=== PATIENT | female | born 1935 | race Caucasian/White ===

== ENCOUNTER 2020-08-19 08:41 | Outpatient (CLI) | payer MEDICARE, MEDICAID | END 2020-08-19 08:42 | disposition home or self-care (01) | LOC: MRI 08:41 | PROVIDERS: ATTEND Family Medicine | DX: M51.36 Other intervertebral disc degeneration, lumbar region (principal); M47.816 Spondylosis without myelopathy or radiculopathy, lumbar region; M47.817 Spondylosis without myelopathy or radiculopathy, lumbosacral region; M47.815 Spondylosis without myelopathy or radiculopathy, thoracolumbar region | CPT/HCPCS: 72148 ==

== ENCOUNTER 2021-09-28 07:33 | Outpatient (CLI) | payer OTHER | END 2021-09-28 07:34 | disposition home or self-care (01) | LOC: CT 07:33 | PROVIDERS: ATTEND Family Medicine | DX: R18.8 Other ascites (principal); J90 Pleural effusion, not elsewhere classified; E27.8 Other specified disorders of adrenal gland; N28.89 Other specified disorders of kidney and ureter; N28.9 Disorder of kidney and ureter, unspecified; M79.89 Other specified soft tissue disorders; K43.9 Ventral hernia without obstruction or gangrene; I51.7 Cardiomegaly; Z90.49 Acquired absence of other specified parts of digestive tract; Z20.822 Contact with and (suspected) exposure to COVID-19 | CPT/HCPCS: 74150; 82565; U0003; U0005 ==

== ENCOUNTER 2021-09-29 08:29 | Inpatient (IN) | payer OTHER, MEDICAID ==
[2021-09-29 09:11] LABS: #Eosinphils 0.1 thou/uL (0.0-0.7); #Lymphocytes 1.1 thou/uL (1.20-3.40); #Monocytes 0.6 thou/uL (0.11-0.59); #Neutrophils 5.5 thou/uL (1.40-6.50); %Basophils 0.3 % (0.0-1.0); %Eosinophils 1.8 % (0.0-10.0); %Lymphocytes 14.5 % (21.0-51.0); %Neutrophils 75.3 % (42.0-75.0); Hemoglobin 9.9 g/dL (12.0-16.0); Mean Corpuscular HGB CONC 33.2 g/dL (32.0-36.0); Mean Corpuscular Hemoglobin 30.6 pg (27.0-31.0); Mean Corpuscular Volume 92.2 fL (78.0-98.0); Mean Platelet Volume 8.8 fL (7.4-10.4); Platelet Count 211 thou/uL (130-400); RBC Distribution Width 14.1 % (11.5-14.5); Red Blood Cell (RBC) Count 3.25 mill/uL (4.20-5.40); White Blood Cell (WBC) Count 7.3 thou/uL (4.8-10.8)
[2021-09-29] MEDS ORDERED: Pantoprazole 40 MG VIAL ONE (09:12)
[2021-09-29 09:28] LABS: PTT 76.6 sec (22.9-36.1); Prothrombin Time 81.8 sec (12.0-14.7)
[2021-09-29 09:31] LABS: ALT (SGPT) Less than 7 U/L (8-55); AST (SGOT) 14 U/L (5-34); Albumin 3.5 g/dL (3.4-4.8); Alkaline Phosphatase 82 U/L (40-110); Anion Gap 13 mmol/L (10-20); BUN (Urea Nitrogen) 45 mg/dL (9.8-20.1); Bilirubin, Total 0.7 mg/dL (0.2-1.2); Calc. Creatinine Clearance 0 mL/min (70-130); Calcium 8.9 mg/dL (7.8-10.44); Carbon Dioxide 26 mmol/L (23-31); Chloride 105 mmol/L (98-107); Estimated GFR 20; Globulin 2.9 g/dL (2.4-3.5); Glucose 121 mg/dL (83-110); Potassium 3.9 mmol/L (3.5-5.1); Protein, Total 6.4 g/dL (5.8-8.1); Sodium 140 mmol/L (136-145)
[2021-09-29 09:44] LABS: INR-International Normal Ratio 9.9
[2021-09-29] MEDS ORDERED: Phytonadione 5 MG TAB PO SCH (10:30)
[2021-09-29] MEDS ORDERED: Pantoprazole 80 MG, Admixture Fee 1 EACH in Sodium Chloride 0.9% 100 ML IVPB SCH (10:30)
[2021-09-29 14:47] VITALS: BMI 31.1
[2021-09-29] MEDS ORDERED: Metoprolol Tartrate 5 MG/5 ML VIAL IVP PRN (17:00)
[2021-09-29 18:18] LABS: Hemoglobin 9.2 g/dL (12.0-16.0); Platelet Count 171 thou/uL (130-400)
[2021-09-29] MEDS: rOPINIRole HCl 1 MG TAB PO SCH ×2 (19:05→19:44)
[2021-09-29] MEDS: Sevelamer Carbonate 800 MG TAB PO SCH (19:05)
[2021-09-29] MEDS: Atorvastatin Calcium 40 MG TAB PO SCH (19:51)
[2021-09-29] MEDS: Gabapentin 100 MG CAP PO SCH (19:51)
[2021-09-29] MEDS: Metoprolol Tartrate 50 MG TAB PO SCH (19:51)
[2021-09-29 23:49] LABS: Hemoglobin 9.1 g/dL (12.0-16.0); Platelet Count 178 thou/uL (130-400)
[2021-09-30] MEDS ORDERED: rOPINIRole HCl 1 MG TAB PO SCH (02:00)
[2021-09-30] MEDS: Sevelamer Carbonate 800 MG TAB PO SCH ×3 (08:53→18:30)
[2021-09-30] MEDS: Amiodarone 200 MG TAB PO SCH (08:54)
[2021-09-30] MEDS: Spironolactone 25 MG TAB PO SCH (08:54)
[2021-09-30] MEDS: Ezetimibe 10 MG TAB PO SCH (08:55)
[2021-09-30] MEDS: Gabapentin 100 MG CAP PO SCH (08:55)
[2021-09-30] MEDS: Metoprolol Tartrate 50 MG TAB PO SCH ×2 (08:56→20:32)
[2021-09-30] MEDS: rOPINIRole HCl 1 MG TAB PO SCH ×3 (08:57→20:26)
[2021-09-30] MEDS: Torsemide 10 MG TAB PO SCH (08:57)
[2021-09-30] MEDS ORDERED: Phytonadione 10 MG/ML AMP SC SCH (09:00)
[2021-09-30 09:36] LABS: #Eosinphils 0.1 thou/uL (0.0-0.7); #Lymphocytes 0.7 thou/uL (1.20-3.40); #Monocytes 0.6 thou/uL (0.11-0.59); #Neutrophils 5.5 thou/uL (1.40-6.50); %Eosinophils 1.7 % (0.0-10.0); %Lymphocytes 9.7 % (21.0-51.0); %Monocytes 8.3 % (0.0-10.0); %Neutrophils 80.3 % (42.0-75.0); Hemoglobin 9.7 g/dL (12.0-16.0); Mean Corpuscular Hemoglobin 29.7 pg (27.0-31.0); Mean Corpuscular Volume 92.9 fL (78.0-98.0); Mean Platelet Volume 8.7 fL (7.4-10.4); Platelet Count 210 thou/uL (130-400); RBC Distribution Width 14.3 % (11.5-14.5); Red Blood Cell (RBC) Count 3.25 mill/uL (4.20-5.40); White Blood Cell (WBC) Count 6.9 thou/uL (4.8-10.8)
[2021-09-30 09:40] LABS: Anion Gap 11 mmol/L (10-20); BUN (Urea Nitrogen) 38 mg/dL (9.8-20.1); Calc. Creatinine Clearance 25 mL/min (70-130); Calcium 8.6 mg/dL (7.8-10.44); Carbon Dioxide 27 mmol/L (23-31); Chloride 107 mmol/L (98-107); Estimated GFR 24; Glucose 116 mg/dL (83-110); Potassium 3.7 mmol/L (3.5-5.1); Sodium 141 mmol/L (136-145)
[2021-09-30 10:16] LABS: INR-International Normal Ratio 4.9
[2021-09-30] MEDS ORDERED: Alendronate Sodium 70 mg Tablet PO SCH (15:15)
[2021-09-30] MEDS: Melatonin 3 MG TAB PO SCH (20:26)
[2021-09-30] MEDS: Pantoprazole 40 MG VIAL IVP SCH (20:32)
[2021-09-30] MEDS: Atorvastatin Calcium 40 MG TAB PO SCH (20:32)
[2021-09-30] MEDS: Acetaminophen 325 MG TAB PO PRN (20:35)
[2021-09-30] MEDS: Ondansetron ODT 4 MG TAB PO PRN (20:36)
[2021-09-30] MEDS: tiZANidine HCl 4 MG TAB PO PRN (20:36)
[2021-09-30] MEDS ORDERED: Gabapentin 100 MG CAP PO SCH (21:00)
[2021-10-01 04:55] LABS: Anion Gap 13 mmol/L (10-20); BUN (Urea Nitrogen) 37 mg/dL (9.8-20.1); Calc. Creatinine Clearance 26 mL/min (70-130); Calcium 8.5 mg/dL (7.8-10.44); Carbon Dioxide 26 mmol/L (23-31); Chloride 106 mmol/L (98-107); Estimated GFR 25; Glucose 100 mg/dL (83-110); Potassium 3.9 mmol/L (3.5-5.1); Sodium 141 mmol/L (136-145)
[2021-10-01 05:20] LABS: #Eosinphils 0.1 thou/uL (0.0-0.7); #Lymphocytes 0.7 thou/uL (1.20-3.40); #Monocytes 0.5 thou/uL (0.11-0.59); #Neutrophils 4.5 thou/uL (1.40-6.50); %Basophils 0.6 % (0.0-1.0); %Eosinophils 2.2 % (0.0-10.0); %Lymphocytes 11.4 % (21.0-51.0); %Neutrophils 76.9 % (42.0-75.0); Hemoglobin 9.2 g/dL (12.0-16.0); Mean Corpuscular HGB CONC 32.1 g/dL (32.0-36.0); Mean Corpuscular Hemoglobin 29.9 pg (27.0-31.0); Mean Corpuscular Volume 93.1 fL (78.0-98.0); Mean Platelet Volume 8.6 fL (7.4-10.4); Platelet Count 196 thou/uL (130-400); RBC Distribution Width 14.3 % (11.5-14.5); Red Blood Cell (RBC) Count 3.08 mill/uL (4.20-5.40); White Blood Cell (WBC) Count 5.9 thou/uL (4.8-10.8)
[2021-10-01] MEDS: Acetaminophen 325 MG TAB PO PRN ×2 (06:12→21:23)
[2021-10-01] MEDS: tiZANidine HCl 4 MG TAB PO PRN ×2 (06:13→21:23)
[2021-10-01] MEDS ORDERED: Cholecalciferol (Vitamin D3) 400 UNITS TAB PO SCH ×2 (09:00)
[2021-10-01 09:22] LABS: INR-International Normal Ratio 2.2; Prothrombin Time 24.9 sec (12.0-14.7)
[2021-10-01] MEDS: Pantoprazole 40 MG VIAL IVP SCH ×2 (09:59→21:20)
[2021-10-01] MEDS: rOPINIRole HCl 1 MG TAB PO SCH ×3 (10:00→21:19)
[2021-10-01] MEDS: Sevelamer Carbonate 800 MG TAB PO SCH ×3 (10:02→15:52)
[2021-10-01] MEDS: Amiodarone 200 MG TAB PO SCH (10:03)
[2021-10-01] MEDS: Spironolactone 25 MG TAB PO SCH (10:03)
[2021-10-01] MEDS: Calcium Carbonate 600 MG TAB PO SCH (10:04)
[2021-10-01] MEDS: Metoprolol Tartrate 50 MG TAB PO SCH ×2 (10:04→21:20)
[2021-10-01] MEDS: Cholecalciferol 1,000 UNITS (25 MCG) TAB PO SCH (10:04)
[2021-10-01] MEDS: Torsemide 10 MG TAB PO SCH (10:04)
[2021-10-01] MEDS: Cyanocobalamin (Vitamin B-12) 1,000 MCG TAB PO SCH (10:04)
[2021-10-01] MEDS: Ezetimibe 10 MG TAB PO SCH (10:05)
[2021-10-01] MEDS ORDERED: Phytonadione 10 MG/ML AMP SC SCH (11:00)
[2021-10-01] MEDS: Atorvastatin Calcium 40 MG TAB PO SCH (21:20)
[2021-10-01] MEDS: Melatonin 3 MG TAB PO SCH (21:20)
[2021-10-02] MEDS: Acetaminophen 325 MG TAB PO PRN (01:17)
[2021-10-02 05:39] LABS: #Eosinphils 0.2 thou/uL (0.0-0.7); #Lymphocytes 0.7 thou/uL (1.20-3.40); #Monocytes 0.5 thou/uL (0.11-0.59); %Basophils 0.3 % (0.0-1.0); %Eosinophils 2.6 % (0.0-10.0); %Monocytes 8.3 % (0.0-10.0); %Neutrophils 77.8 % (42.0-75.0); Mean Corpuscular HGB CONC 31.8 g/dL (32.0-36.0); Mean Corpuscular Hemoglobin 29.8 pg (27.0-31.0); Mean Corpuscular Volume 93.5 fL (78.0-98.0); Mean Platelet Volume 8.5 fL (7.4-10.4); Platelet Count 219 thou/uL (130-400); RBC Distribution Width 14.4 % (11.5-14.5); Red Blood Cell (RBC) Count 3.35 mill/uL (4.20-5.40); White Blood Cell (WBC) Count 6.5 thou/uL (4.8-10.8)
[2021-10-02 05:56] LABS: Anion Gap 16 mmol/L (10-20); BUN (Urea Nitrogen) 38 mg/dL (9.8-20.1); Calc. Creatinine Clearance 24 mL/min (70-130); Calcium 8.5 mg/dL (7.8-10.44); Carbon Dioxide 23 mmol/L (23-31); Chloride 106 mmol/L (98-107); Estimated GFR 24; Glucose 111 mg/dL (83-110); Potassium 3.7 mmol/L (3.5-5.1); Sodium 141 mmol/L (136-145)
[2021-10-02] MEDS: Ondansetron ODT 4 MG TAB PO PRN (08:11)
[2021-10-02] MEDS: Pantoprazole 40 MG VIAL IVP SCH ×2 (09:00→21:55)
[2021-10-02] MEDS: Ondansetron PF 4 MG/2 ML Vial IVP PRN ×2 (11:47→21:53)
[2021-10-02 13:05] LABS: INR-International Normal Ratio 1.5; Prothrombin Time 17.9 sec (12.0-14.7)
[2021-10-02] MEDS: rOPINIRole HCl 1 MG TAB PO SCH ×3 (14:47→21:54)
[2021-10-02] MEDS: Sevelamer Carbonate 800 MG TAB PO SCH ×2 (14:50→17:48)
[2021-10-02] MEDS: Torsemide 10 MG TAB PO SCH (14:51)
[2021-10-02] MEDS: Ezetimibe 10 MG TAB PO SCH (14:51)
[2021-10-02] MEDS: Spironolactone 25 MG TAB PO SCH (14:51)
[2021-10-02] MEDS: Cholecalciferol 1,000 UNITS (25 MCG) TAB PO SCH (14:51)
[2021-10-02] MEDS: Cyanocobalamin (Vitamin B-12) 1,000 MCG TAB PO SCH (14:51)
[2021-10-02] MEDS: Calcium Carbonate 600 MG TAB PO SCH (14:51)
[2021-10-02] MEDS: Metoprolol Tartrate 50 MG TAB PO SCH ×2 (14:51→21:54)
[2021-10-02] MEDS: Atorvastatin Calcium 40 MG TAB PO SCH (21:54)
[2021-10-02] MEDS: Melatonin 3 MG TAB PO SCH (21:55)
[2021-10-03] MEDS: Acetaminophen 325 MG TAB PO PRN (02:15)
[2021-10-03] MEDS: Ondansetron PF 4 MG/2 ML Vial IVP PRN (06:32)
[2021-10-03] MEDS: rOPINIRole HCl 1 MG TAB PO SCH (09:32)
[2021-10-03] MEDS: Metoprolol Tartrate 50 MG TAB PO SCH (09:32)
[2021-10-03] MEDS: Torsemide 10 MG TAB PO SCH (09:32)
[2021-10-03] MEDS: Pantoprazole 40 MG VIAL IVP SCH (09:33)
[2021-10-03] MEDS: Ezetimibe 10 MG TAB PO SCH (10:31)
[2021-10-03] MEDS: Calcium Carbonate 600 MG TAB PO SCH (10:31)
[2021-10-03] MEDS: Cholecalciferol 1,000 UNITS (25 MCG) TAB PO SCH (10:31)
[2021-10-03] MEDS: Spironolactone 25 MG TAB PO SCH (10:31)
[2021-10-03] MEDS: Cyanocobalamin (Vitamin B-12) 1,000 MCG TAB PO SCH (10:31)
[2021-10-03] MEDS: Sevelamer Carbonate 800 MG TAB PO SCH ×2 (10:31→15:24)
[2021-10-03 12:14] VITALS: BP 138/87; TEMP 97.6
== END 2021-10-03 12:48 | DRG 813 ==
LOC: ERS 08:29 → ERHOLD 10:53 → 2SW 14:06
PROVIDERS: ADMIT Internal Medicine; ATTEND Hospitalist
DX: D68.32 Hemorrhagic disorder due to extrinsic circulating anticoagulants (principal); I13.0 Hypertensive heart and chronic kidney disease with heart failure and stage 1 through stage 4 chronic kidney disease, or unspecified chronic kidney disease; D62 Acute posthemorrhagic anemia; I42.9 Cardiomyopathy, unspecified; I48.21 Permanent atrial fibrillation; R18.8 Other ascites; J90 Pleural effusion, not elsewhere classified; T45.515A Adverse effect of anticoagulants, initial encounter; K21.9 Gastro-esophageal reflux disease without esophagitis; I50.9 Heart failure, unspecified; M10.9 Gout, unspecified; Z96.653 Presence of artificial knee joint, bilateral; F03.90 Unspecified dementia, unspecified severity, without behavioral disturbance, psychotic disturbance, mood disturbance, and anxiety; N28.89 Other specified disorders of kidney and ureter; E66.9 Obesity, unspecified; G25.81 Restless legs syndrome; F32.A Depression, unspecified; F41.9 Anxiety disorder, unspecified; D63.1 Anemia in chronic kidney disease; N18.30 Chronic kidney disease, stage 3 unspecified; K26.9 Duodenal ulcer, unspecified as acute or chronic, without hemorrhage or perforation; Z20.822 Contact with and (suspected) exposure to COVID-19; Y92.9 Unspecified place or not applicable; Z79.01 Long term (current) use of anticoagulants; Z86.73 Personal history of transient ischemic attack (TIA), and cerebral infarction without residual deficits; Z86.711 Personal history of pulmonary embolism; Z90.49 Acquired absence of other specified parts of digestive tract; Z90.710 Acquired absence of both cervix and uterus; Z88.5 Allergy status to narcotic agent; Z88.8 Allergy status to other drugs, medicaments and biological substances; Z68.31 Body mass index [BMI] 31.0-31.9, adult
CPT/HCPCS: 36415; 74176; 80048; 80053; 82274; 85025; 85610; 85730; 86850; 86900; 86901; 87324; 87449; 93005; 93306; 94760; 96374; 96376; C9113; J2405; J3430; J3490; Q0162; U0003; U0005